=== PATIENT | female | born 1965 | race American Indian/Alaskan Native ===

== ENCOUNTER 2020-09-04 11:44 | Day surgery (SDC) | payer OTHER ==
[~2020-09-04 11:44] MED LIST: LACTATED RINGERS 1,000 ML IV SCH; MIDAZOLAM 2 MG/2 ML INJ IV NR
--- NOTE | 2020-09-04 12:49 | Anesthesia Consultation ---
Anesthesia Consult and Med Hx Date of service: 09/04/20 - Airway Anesthetic Teeth Evaluation: Good, Crowns ROM Head & Neck: Adequate Mental/Hyoid Distance: Adequate Mallampati Class: Class II Intubation Access Assessment: Probably Good - Pre-Operative Health Status ASA Pre-Surgery Classification: ASA2 Proposed Anesthetic Plan: General - Pulmonary Hx Smoking: Yes (THC ) Hx Respiratory Symptoms: No - Cardiovascular System Hx Hypertension: No Hx Heart Attack/AMI: No - Gastrointestinal Hx Gastroesophageal Reflux Disease: Yes - Endocrine Hx Renal Disease: No Hx Liver Disease: No Hx Insulin Dependent Diabetes: No Hx Non-Insulin Dependent Diabetes: No Hx Thyroid Disease: No - Other Systems Hx Substance Use: Yes (occasional THC) Hx Obesity: Yes (BMI 34)
[2020-09-04] MEDS ORDERED: HYDROcodone/ACETAMINOPHEN 5-325 MG TAB PO PRN (12:50)
[2020-09-04] MEDS ORDERED: fentaNYL 100 MCG/2 ML INJ IV PRN (12:50)
[2020-09-04] MEDS ORDERED: ONDANSETRON 4 MG/2 ML INJ IV PRN (12:50)
--- NOTE | 2020-09-04 12:50 | Anesthesia Day of Surgery ---
Anesthesia Day of Surgery - Day of Surgery Patient Examined: Yes Patient H&P Reviewed: Yes Patient is NPO: Yes
[2020-09-04] MEDS ORDERED: SODIUM CHLORIDE 0.9% IRRIG SOLN 3000 ML IR ONE (13:33)
[2020-09-04] MEDS ORDERED: propofoL 200 MG/20 ML VIAL IV ONE (13:49)
[2020-09-04] MEDS ORDERED: LIDOCAINE PF 100 MG/5 ML (CARDIAC SYRINGE) IV ONE (13:49)
[2020-09-04] MEDS ORDERED: ONDANSETRON 4 MG/2 ML INJ ONE (13:50)
[2020-09-04] MEDS ORDERED: fentaNYL 100 MCG/2 ML INJ ONE (13:50)
[2020-09-04] MEDS ORDERED: ePHEDrine SULFATE 50 MG/1 ML INJ ONE (14:51)
[2020-09-04] MEDS ORDERED: SILVER NITRATE APPLICATOR 1 EA TP ONE ×5 (15:19→15:30)
[2020-09-04] MEDS ORDERED: LACTATED RINGERS 1,000 ML ONE (15:30)
[2020-09-04] MEDS ORDERED: KETOROLAC 30 MG/1 ML INJ ONE (15:37)
[2020-09-04] MEDS ORDERED: PHENYLEPHRINE/NS 1,000 MCG/10 ML SYRINGE (OR USE) IV ONE (15:40)
[2020-09-04] MEDS ORDERED: oxyCODONE /ACETAMINOPHEN 5-325MG TAB PO PRN (15:54)
[2020-09-04] MEDS ORDERED: IBUPROFEN 800 MG TAB PO PRN (15:54)
--- NOTE | 2020-09-04 16:15 | Procedure Note ---
Date of procedure: 09/04/20 Pre-op diagnosis: Post menopausal bleeding, thick endometrial stripe, endocervical polyp Post-op diagnosis: same Procedure: After the risks, benefits and alternatives of the procedure were discussed, pt signed consents and was taken to operating room via stretcher. Time out was done. Pt was given general anesthesia and when same was adequate, pt was prepped and draped in usual sterile fashion in dorsal lithotomy position. The bladder was emptied using a red rubber catheter and bimanual exam done. Speculum placed in the vagina and the anterior lip of the cervix grasped with single tooth tenaculum. The cervix was dilated serially using hegar dilators and hysteroscope gently advanced to fundus and cavity appears wnl and both ostia seen. Hysteroscopic fluid used was normal saline with deficit 100cc. The hysteroscope was removed and sharp curettage done to quads of the intrauterine cavity and same was minimal. Attention turned to endocervical polyp and same grasped with polyp forceps and excised in an elliptical fashion and the base cauterized. Silver nitrate also used for added hemostasis. The tenaculum was then removed without difficulty and no bleeding seen. Pt tolerated the procedure, sponge, lap and instrument counts correct x2. Pt was extubated and taken to recovery room stable EBL: less than 50cc Hysteroscopic fluid deficit: 100cc Urine: 200cc clear urine preop Pathology: endometrial curettings and endocervical polyp Findings: Scant amount of endometrial curettings and 1.5 x2cm endocervical polyp. Normal appearing endometrial cavity and both ostia seen Implants: none Anesthesia: BRUCE Surgeon: TAI DEVI Estimated blood loss: minimal (less than 50cc) Pathology: list (endometrial curettings and endocervical polyp) Specimen disposition: to lab Condition: stable Disposition: PACU
[2020-09-04 16:32] VITALS: BP 108/68
--- NOTE | 2020-09-04 22:33 | Post Anesthesia Evaluation ---
- Post Anesthesia Evaluation Patient Participated: Yes Airway Patent: Yes Stable Respiratory Function: Yes Nausea/Vomiting: No Temp > 96.8F: Yes Pain Manageable: Yes Adequeate Hydration: Yes Anesthesia Complications: No
== END 2020-09-04 17:30 | disposition home or self-care (01) ==
LOC: OR 11:44
PROVIDERS: ATTEND Obstetrics & Gynecology
DX: N95.0 Postmenopausal bleeding (principal); N84.0 Polyp of corpus uteri; M19.90 Unspecified osteoarthritis, unspecified site; K21.9 Gastro-esophageal reflux disease without esophagitis; E66.9 Obesity, unspecified; Z98.51 Tubal ligation status; Z72.89 Other problems related to lifestyle; Z98.42 Cataract extraction status, left eye; Z98.890 Other specified postprocedural states; Z98.41 Cataract extraction status, right eye; Z79.899 Other long term (current) drug therapy; Z68.34 Body mass index [BMI] 34.0-34.9, adult
CPT/HCPCS: 58558; 88305; A4217; J1885; J2001; J2250; J2370; J2405; J2704; J3010; J7120

== ENCOUNTER 2020-10-07 10:59 | Outpatient (CLI) | payer OTHER ==
--- NOTE | 2020-10-07 12:43 | Cat Scan Report ---
CT ABDOMEN AND PELVIS WITHOUT CONTRAST INDICATION / CLINICAL INFORMATION: OTHER MICROSCOPIC HEMATURIA. TECHNIQUE: Axial CT images were obtained through the abdomen and pelvis without IV contrast. All CT scans at [facility] location are performed using CT dose reduction for ALARA by means of automated exposure control. COMPARISON: None available. FINDINGS: LOWER CHEST: No significant abnormality. LIVER: No significant abnormality. GALLBLADDER: No significant abnormality. BILE DUCTS: No significant abnormality. PANCREAS: No significant abnormality. SPLEEN: No significant abnormality. ADRENALS: No significant abnormality. RIGHT KIDNEY and URETER: No significant abnormality. LEFT KIDNEY and URETER: No significant abnormality. STOMACH and SMALL BOWEL: Small type I hiatal hernia. COLON: Colonic diverticulosis without diverticulitis.. APPENDIX: No significant abnormality. PERITONEUM: No free fluid. No free air. No fluid collection. LYMPH NODES: No significant adenopathy. AORTA and ARTERIES: No significant abnormality. IVC and VEINS: No significant abnormality. URINARY BLADDER: No significant abnormality. REPRODUCTIVE ORGANS: No significant abnormality. ADDITIONAL FINDINGS: None. SKELETAL SYSTEM: No significant abnormality. IMPRESSION: No evidence of nephrolithiasis. Colonic diverticulosis without diverticulitis. Small to moderate-size d type I hiatal hernia. Signer Name: Ezequiel Jones MD Signed: 10/07/2020 11:47 AM Workstation Name: [id number]
== END 2020-10-07 11:00 | disposition home or self-care (01) ==
LOC: CT 10:59
PROVIDERS: ATTEND Urology
DX: K44.9 Diaphragmatic hernia without obstruction or gangrene (principal); R31.29 Other microscopic hematuria
CPT/HCPCS: 74176